=== PATIENT | female | born 1980 | race Two or more races ===

== ENCOUNTER 2021-11-06 18:35 | Outpatient (CLI) | payer OTHER | END 2021-11-07 18:00 | disposition home or self-care (01) | LOC: OBS/DEL 18:35 | PROVIDERS: ATTEND Obstetrics & Gynecology | DX: O22.42 Hemorrhoids in pregnancy, second trimester (principal); Z3A.25 25 weeks gestation of pregnancy ==

== ENCOUNTER 2022-01-23 11:22 | Inpatient (IN) | payer OTHER ==
[~2022-01-23] VITALS: Ht 162.6 cm; Wt 60.8 kg
== END 2022-01-25 17:24 | disposition home or self-care (01) | DRG 807 ==
LOC: LDR 11:22 → SURG-SUITE 11:22
PROVIDERS: ADMIT Obstetrics & Gynecology; ATTEND Obstetrics & Gynecology
PROC: 10E0XZZ Delivery of Products of Conception, External Approach (ICD-10-PCS; principal; 2022-01-23)
PROC: 4A1HXCZ Monitoring of Products of Conception, Cardiac Rate, External Approach (ICD-10-PCS; 2022-01-23)
PROC: 0W8NXZZ Division of Female Perineum, External Approach (ICD-10-PCS; 2022-01-23)
DX: O60.14X0 Preterm labor third trimester with preterm delivery third trimester, not applicable or unspecified (principal); Z37.0 Single live birth; Z3A.36 36 weeks gestation of pregnancy; Z20.822 Contact with and (suspected) exposure to COVID-19